=== PATIENT | male | born 1990 | race Two or more races ===

== ENCOUNTER → 2024-09-27 | Outpatient (CLI) | payer MEDICAID, SELFPAY ==
--- NOTE | 2024-09-27 15:09 | XR_ITS ---
Examination: CT right hip, pelvis without intravenous contrast. 2-D sagittal and coronal reconstructions. Date and time of exam:September 27, 2024 1538 hours INDICATIONS: Patient fell August 09, 2024 with injury to the right hip, right hip pain CTDI: vol (mGy) :5.88 DLP: (mGycm) : 202 Technique: Multiple 3 mm axial sections of the pelvis have been obtained with the 64 slice high resolution scanner. 2-D sagittal and coronal reconstructions. Low dose protocols were performed. One or more of the following dose reduction techniques were used; automated exposure control, adjustment of the mA and/or KV according to patient size, use of iterative reconstruction technique. 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
== END | disposition home or self-care (01) ==
PROVIDERS: PCP Nurse Practitioner Family; Referring Provider Internal Medicine Nephrology; Visit Provider Internal Medicine Nephrology
DX: M85.88 Other specified disorders of bone density and structure, other site (principal); S79.911A Unspecified injury of right hip, initial encounter; W19.XXXA Unspecified fall, initial encounter
CPT/HCPCS: 73700